=== PATIENT | male | born 1950 | race Two or more races ===

== ENCOUNTER 2022-04-12 11:08 | Emergency (ER) | payer OTHER ==
[~2022-04-12] VITALS: Ht 172.7 cm; Wt 77.1 kg
[2022-04-12] MEDS ORDERED: CRESTOR5 MG (11:21)
== END 2022-04-12 14:28 | disposition home or self-care (01) ==
LOC: ER 11:08
DX: U07.1 COVID-19 (principal); Z88.6 Allergy status to analgesic agent; J02.9 Acute pharyngitis, unspecified; I10 Essential (primary) hypertension

== ENCOUNTER 2022-04-15 08:42 | Outpatient (CLI) | payer OTHER ==
[~2022-04-15 08:42] MED LIST: CRESTOR5 MG
== END 2022-04-15 10:10 | disposition home or self-care (01) ==
LOC: ASH CLINIC 08:42
PROVIDERS: ATTEND Specialist
DX: U07.1 COVID-19 (principal)

== ENCOUNTER 2022-10-14 14:59 | Outpatient (CLI) | payer OTHER | END 2022-10-14 15:09 | disposition home or self-care (01) | LOC: PPH VACUNA 14:59 | PROVIDERS: ATTEND Emergency Medicine Pediatric Emergency Medicine | DX: Z23 Encounter for immunization (principal) ==

== ENCOUNTER 2023-04-27 17:37 | Emergency (ER) | payer OTHER ==
[~2023-04-27] VITALS: Ht 172.7 cm; Wt 72.6 kg
[2023-04-27] MEDS ORDERED: TELMISARTAN40 MG PO (17:46)
[2023-04-27] MEDS ORDERED: AMLODIPINE BESYL5 MG PO (17:46)
== END 2023-04-27 18:56 | disposition home or self-care (01) ==
LOC: ER 17:37
DX: M79.18 Myalgia, other site (principal); Z88.6 Allergy status to analgesic agent

== ENCOUNTER 2023-05-04 14:10 | Outpatient (CLI) | payer OTHER ==
[~2023-05-04 14:10] MED LIST changes: +AMLODIPINE BESYL5 MG PO; +TELMISARTAN40 MG PO
== END 2023-05-04 14:16 | disposition home or self-care (01) ==
LOC: RAD 14:10
PROVIDERS: ATTEND Orthopaedic Surgery
DX: M54.2 Cervicalgia (principal)

== ENCOUNTER 2023-05-14 12:57 | Outpatient (CLI) | payer OTHER | END 2023-05-14 12:59 | disposition home or self-care (01) | LOC: NUCLEAR 12:57 | PROVIDERS: ATTEND Orthopaedic Surgery | DX: M81.0 Age-related osteoporosis without current pathological fracture (principal) ==

== ENCOUNTER 2023-06-11 06:38 | Outpatient (CLI) | payer OTHER | END 2023-06-11 06:42 | disposition home or self-care (01) | LOC: LAB 06:38 | PROVIDERS: ATTEND Orthopaedic Surgery | DX: M85.9 Disorder of bone density and structure, unspecified (principal); E83.42 Hypomagnesemia; E56.1 Deficiency of vitamin K; Z88.6 Allergy status to analgesic agent ==

== ENCOUNTER 2024-05-19 08:03 | Outpatient (CLI) | payer OTHER | END 2024-05-19 08:04 | disposition home or self-care (01) | LOC: LAB 08:03 | PROVIDERS: ATTEND Orthopaedic Surgery | DX: E55.9 Vitamin D deficiency, unspecified (principal); M85.9 Disorder of bone density and structure, unspecified; E56.1 Deficiency of vitamin K ==

== ENCOUNTER 2024-10-01 07:04 | Emergency (ER) | payer OTHER ==
[~2024-10-01] VITALS: Ht 172.7 cm; Wt 73.5 kg
== END 2024-10-01 09:27 | disposition home or self-care (01) ==
LOC: ER 07:06
DX: M25.561 Pain in right knee (principal); I10 Essential (primary) hypertension; Z88.6 Allergy status to analgesic agent

== ENCOUNTER 2024-10-09 12:51 | Outpatient (CLI) | payer OTHER | END 2024-10-09 12:52 | disposition home or self-care (01) | LOC: NUCLEAR 12:51 | PROVIDERS: ATTEND Orthopaedic Surgery | DX: I82.409 Acute embolism and thrombosis of unspecified deep veins of unspecified lower extremity (principal); I87.2 Venous insufficiency (chronic) (peripheral) ==

== ENCOUNTER 2024-10-17 08:40 | Outpatient (CLI) | payer OTHER | END 2024-10-17 08:41 | disposition home or self-care (01) | LOC: RAD 08:40 | PROVIDERS: ATTEND Orthopaedic Surgery | DX: M25.571 Pain in right ankle and joints of right foot (principal); S93.611A Sprain of tarsal ligament of right foot, initial encounter ==

== ENCOUNTER 2024-10-20 10:11 | Outpatient (CLI) | payer OTHER | END 2024-10-20 10:25 | disposition home or self-care (01) | LOC: TOM 10:11 | PROVIDERS: ATTEND Orthopaedic Surgery | DX: M25.571 Pain in right ankle and joints of right foot (principal); S90.01XA Contusion of right ankle, initial encounter ==

== ENCOUNTER 2024-11-17 13:47 | Outpatient (CLI) | payer OTHER ==
[2024-11-17 14:56] LABS: SYNOVIAL FLUID APPEARANCE TURBID; SYNOVIAL FLUID COLOR YELLOW
[2024-11-17 17:06] LABS: MONONUCLEAR 4 %; POLYMORPHONUCLEAR 96 %
== END 2024-11-17 13:48 | disposition home or self-care (01) ==
LOC: LAB 13:47
PROVIDERS: ATTEND Orthopaedic Surgery
DX: M25.461 Effusion, right knee (principal)

== ENCOUNTER 2024-11-17 14:25 | Outpatient (CLI) | payer OTHER | END 2024-11-17 14:35 | disposition home or self-care (01) | LOC: RAD 14:25 | PROVIDERS: ATTEND Orthopaedic Surgery | DX: M25.561 Pain in right knee (principal) ==

== ENCOUNTER 2024-11-19 08:29 | Emergency (ER) | payer OTHER ==
[~2024-11-19] VITALS: Ht 172.7 cm; Wt 74.8 kg
[2024-11-19] MEDS ORDERED: TRAMADOL HCL 50 MG TABLET PO STA (09:59)
[2024-11-19 11:54] LABS: HEMATOCRIT 38.6 % (39.0-48.0); HEMOGLOBIN 12.6 g/dL (13-16.00); MEAN CELL VOLUME 92.4 fL (80.0-100.00); MEAN CORPUSCULAR HEMOGLOBIN 30.2 pg (27.00-32.0); MEAN CORPUSCULAR HGB CONC 32.7 g/dl (32.0-36.0); PLATELET COUNT 315 K/uL (150-450); RED BLOOD COUNT 4.18 M/uL (4.00-6.00); RED CELL DISTRIBUTION WIDTH 12.7 % (11.5-14.5)
== END 2024-11-19 14:38 | disposition home or self-care (01) ==
LOC: ER 08:32
PROVIDERS: General Practice
DX: M25.561 Pain in right knee (principal); I10 Essential (primary) hypertension; Z88.6 Allergy status to analgesic agent

== ENCOUNTER 2024-11-24 06:43 | Outpatient (CLI) | payer OTHER ==
[2024-11-24 07:49] LABS: HEMATOCRIT 34.7 % (39.0-48.0); MEAN CELL VOLUME 89.7 fL (80.0-100.00); MEAN CORPUSCULAR HGB CONC 34.5 g/dl (32.0-36.0); PLATELET COUNT 383 K/uL (150-450); RED BLOOD COUNT 3.86 M/uL (4.00-6.00); RED CELL DISTRIBUTION WIDTH 12.8 % (11.5-14.5)
[2024-11-24 08:04] LABS: ERYTHROCYTE SEDIMENTATION RATE 39 mm/hr
[2024-11-24 08:24] LABS: ALBUMIN 3.2 gm/dL (3.4-5.0); BILIRUBIN TOTAL 0.65 mg/dL (0.3-1.2); C-REACTIVE PROTEIN 7.82 MG/DL (0.00-0.29); CREATININE SERUM 0.66 mg/dL (0.70-1.30); GFR 118.64; GLOBULINA 3.6 G/DL (2.4-3.5); POTASSIUM 4.73 mEq/L (3.5-5.1); TOTAL PROTEIN 6.8 gm/dL (6.4-8.2)
== END 2024-11-24 06:44 | disposition home or self-care (01) ==
LOC: LAB 06:43
PROVIDERS: ATTEND Orthopaedic Surgery
DX: I80.221 Phlebitis and thrombophlebitis of right popliteal vein (principal); I80.222 Phlebitis and thrombophlebitis of left popliteal vein; M06.4 Inflammatory polyarthropathy; E88.89 Other specified metabolic disorders

== ENCOUNTER 2025-01-01 06:10 | Outpatient (CLI) | payer OTHER ==
[2025-01-02 13:07] LABS: HOMOCYSTEINE 15.6 umol/L (0.0-19.2)
[2025-01-02 15:04] LABS: ANTI CARDIO IGA < 9 APL U/mL (0-11); ANTI CARDIO IGG < 9 GPL U/mL (0-14); ANTI CARDIO IGM < 9 MPL U/mL (0-12)
== END 2025-01-01 06:19 | disposition home or self-care (01) ==
LOC: LAB 06:10
PROVIDERS: ATTEND Orthopaedic Surgery
DX: Z83.2 Family history of diseases of the blood and blood-forming organs and certain disorders involving the immune mechanism (principal); Z86.72 Personal history of thrombophlebitis

== ENCOUNTER 2025-03-02 07:49 | Outpatient (CLI) | payer OTHER | END 2025-03-02 07:50 | disposition home or self-care (01) | LOC: NUCLEAR 07:49 | PROVIDERS: ATTEND Orthopaedic Surgery | DX: I80.291 Phlebitis and thrombophlebitis of other deep vessels of right lower extremity (principal) ==

== ENCOUNTER → 2025-07-21 07:04 | Outpatient (CLI) | payer OTHER | END | disposition home or self-care (01) | LOC: LAB 07:04 | PROVIDERS: ATTEND Orthopaedic Surgery | DX: E55.9 Vitamin D deficiency, unspecified (principal); E56.1 Deficiency of vitamin K; M85.9 Disorder of bone density and structure, unspecified ==

== ENCOUNTER 2025-08-08 12:51 | Outpatient (CLI) | payer OTHER | END 2025-08-08 12:53 | disposition home or self-care (01) | LOC: NUCLEAR 12:51 | PROVIDERS: ATTEND Orthopaedic Surgery | DX: M81.0 Age-related osteoporosis without current pathological fracture (principal) ==